=== PATIENT | female | born 1980 | race Caucasian/White ===

== ENCOUNTER 2022-12-24 19:45 | Emergency (ER) | payer MEDICAID, OTHER ==
[~2022-12-24] VITALS: Ht 162.6 cm; Wt 70.0 kg
[2022-12-24 19:49] VITALS: BP 142/95; PULSE 80; RESP 20; TEMP 97.5; O2SAT 99
== END 2022-12-24 22:32 | disposition left against medical advice (07) ==
LOC: ER 19:45
DX: Z53.21 Procedure and treatment not carried out due to patient leaving prior to being seen by health care provider (principal)
CPT/HCPCS: 99281

== ENCOUNTER 2023-05-18 09:06 | Emergency (ER) | payer OTHER ==
[~2023-05-18] VITALS: Ht 162.6 cm; Wt 59.0 kg
[2023-05-18 09:17] VITALS: BP 104/76; PULSE 100; RESP 16; TEMP 98.5; O2SAT 97
== END 2023-05-18 11:05 | disposition home or self-care (01) ==
LOC: ER 09:06
DX: M79.10 Myalgia, unspecified site (principal); R05.9 Cough, unspecified; R09.81 Nasal congestion; F41.9 Anxiety disorder, unspecified; Z98.890 Other specified postprocedural states; Z20.822 Contact with and (suspected) exposure to COVID-19
CPT/HCPCS: 87426; 99283